=== PATIENT | male | born 2000 | race Two or more races ===

== ENCOUNTER 2020-05-22 14:06 | Emergency (ER) | payer OTHER ==
[~2020-05-22] VITALS: Ht 175.3 cm; Wt 101.6 kg
[2020-05-22] MEDS ORDERED: NAPROXEN375 MG PO (17:32)
[2020-05-22] MEDS ORDERED: ORPHENADRINE C100 MG PO (17:32)
== END 2020-05-22 18:37 | disposition home or self-care (01) ==
LOC: ER 14:06
DX: T14.8XXA Other injury of unspecified body region, initial encounter (principal); V49.9XXA Car occupant (driver) (passenger) injured in unspecified traffic accident, initial encounter; Y93.89 Activity, other specified; Y92.413 State road as the place of occurrence of the external cause

== ENCOUNTER 2022-07-31 10:01 | Outpatient (CLI) | payer OTHER ==
[~2022-07-31 10:01] MED LIST: NAPROXEN375 MG PO; ORPHENADRINE C100 MG PO
== END 2022-07-31 10:08 | disposition home or self-care (01) ==
LOC: RAD 10:01
PROVIDERS: ATTEND Internal Medicine
DX: I10 Essential (primary) hypertension (principal); M54.59 Other low back pain; E03.9 Hypothyroidism, unspecified; E55.9 Vitamin D deficiency, unspecified; E78.9 Disorder of lipoprotein metabolism, unspecified; E66.8 Other obesity; E11.9 Type 2 diabetes mellitus without complications; E11.51 Type 2 diabetes mellitus with diabetic peripheral angiopathy without gangrene